=== PATIENT | female | born 1960 | race Caucasian/White ===

== ENCOUNTER 2021-04-29 15:53 | Emergency (ER) | payer OTHER ==
[2021-04-29 16:13] VITALS: BP 126/90; PULSE 93; TEMP 98.6; BMI 24.9
[2021-04-29] MEDS ORDERED: KETOROLAC TROMETHAMINE 15 MG/ML VIAL IM ONE (17:14)
[2021-04-29] MEDS ORDERED: KETOROLAC TROMETHAMINE 15 MG/ML VIAL ONE (17:16)
[2021-04-29] MEDS ORDERED: ACETAMINOPHEN 500 MG TABLET (FP) PO ONE (17:26)
[2021-04-29] MEDS ORDERED: ACETAMINOPHEN 325 MG TABLET (FP) ONE (17:32)
[2021-04-29] MEDS ORDERED: METHOCARBAMOL 500 MG TABLET PO ONE (18:55)
[2021-04-29] MEDS ORDERED: LIDOCAINE 5% TOPICAL PATCH TP ONE (18:55)
[2021-04-29] MEDS ORDERED: METHOCARBAMOL 500 MG TABLET ONE (19:04)
[2021-04-29] MEDS ORDERED: LIDOCAINE 5% TOPICAL PATCH ONE (19:05)
[2021-04-29] MEDS ORDERED: LIDOCAINE PATCH REMOVAL MC SCH (22:00)
== END 2021-04-29 19:41 | disposition home or self-care (01) ==
LOC: FER 15:53
PROC: 3E023GC Introduction of Other Therapeutic Substance into Muscle, Percutaneous Approach (ICD-10-PCS; principal; 2021-04-29)
DX: M54.2 Cervicalgia (principal); R20.2 Paresthesia of skin; V49.40XA Driver injured in collision with unspecified motor vehicles in traffic accident, initial encounter
CPT/HCPCS: 70450-TC; 72125-TC; 99284-25

== ENCOUNTER 2023-01-10 04:57 | Day surgery (SDC) | payer OTHER ==
[2023-01-09 08:46] VITALS: BMI 23.0
[2023-01-10] MEDS ORDERED: SUCCINYLCHOLINE CHLORIDE 200 MG/10 ML SYRINGE ONE (09:40)
[2023-01-10] MEDS ORDERED: PROPOFOL 40 ML ONE (09:40)
[2023-01-10] MEDS ORDERED: ONDANSETRON 4 MG/2 ML VIAL IVPUSH PRN ×2 (10:19→10:25)
[2023-01-10] MEDS ORDERED: oxyCODONE HCL 5 MG TABLET PO PRN ×2 (10:19→10:25)
[2023-01-10] MEDS ORDERED: IBUPROFEN 600 MG TABLET (FP) PO PRN (10:25)
[2023-01-10] MEDS ORDERED: IBUPROFEN 800 MG/8 ML IJ IVPB PRN (10:25)
[2023-01-10] MEDS ORDERED: ELECTROLYTE-148 SOLN 1,000 ML IV SCH (10:30)
[2023-01-10] MEDS ORDERED: LACTATED RINGERS SOLUTION 1,000 ML IV SCH (10:30)
[2023-01-10 12:19] VITALS: RESP 18
[2023-01-10 13:16] VITALS: BP 113/69; PULSE 82; TEMP 97.3
== END 2023-01-10 13:00 | disposition home or self-care (01) ==
LOC: JASU-SURG 04:57
PROVIDERS: ATTEND Obstetrics & Gynecology
PROC: 0UDB8ZZ Extraction of Endometrium, Via Natural or Artificial Opening Endoscopic (ICD-10-PCS; principal; 2023-01-10 09:00)
DX: N95.0 Postmenopausal bleeding (principal)
CPT/HCPCS: 88305-TC; 88341-TC; 88342-TC; 94760

== ENCOUNTER 2024-10-15 10:22 | Emergency (ER) | payer OTHER ==
[2024-10-15 10:31] VITALS: BP 127/90; PULSE 85; RESP 18; TEMP 98.1; BMI 26.0
[2024-10-15] MEDS ORDERED: ALBUTEROL SO4 2.5/IPRATROPIUM 0.5 INH SOL 3 ML VIAL.NEB. NEB ONE (11:16)
[2024-10-15] MEDS: ALBUTEROL SO4 2.5/IPRATROPIUM 0.5 INH SOL 3 ML VIAL.NEB. NEB ONE ×2 (11:19)
[2024-10-15] MEDS ORDERED: predniSONE 10 MG TABLET (UD) ONE (12:00)
[2024-10-15] MEDS ORDERED: predniSONE 20 MG TABLET (UD) ONE (12:00)
[2024-10-15] MEDS: predniSONE 20 MG TABLET (UD) PO ONE (12:02)
== END 2024-10-15 12:05 | disposition home or self-care (01) ==
LOC: FER 10:22
PROC: 3E0F7GC Introduction of Other Therapeutic Substance into Respiratory Tract, Via Natural or Artificial Opening (ICD-10-PCS; principal; 2024-10-15)
PROC: 3E0F7GC Introduction of Other Therapeutic Substance into Respiratory Tract, Via Natural or Artificial Opening (ICD-10-PCS; 2024-10-15)
DX: R05.1 Acute cough (principal); R06.2 Wheezing
CPT/HCPCS: 71046-TC-FY; 99284-25